=== PATIENT | male | born 1935 | race Caucasian/White ===

== ENCOUNTER 2017-07-23 20:27 | Observation (INO) | payer OTHER ==
[~2017-07-23] VITALS: Ht 177.8 cm; Wt 85.5 kg
[2017-07-23 21:17] LABS: BASOPHIL % 0.4 % (0-2); PLATELET COUNT 159 x10^3mcL (130-400); RED CELL DISTRIBUTION WIDTH 13.4 % (11.5-14.5)
[2017-07-23 21:24] LABS: CALCIUM 8.7 mg/dL (8.5-10.1); CARBON DIOXIDE 35.9 mmol/L (21-32); CHLORIDE SERUM 106 mmol/L (98-107); CREATININE SERUM 0.9 mg/dL (0.7-1.3); GLUCOSE SERUM 132 mg/dL (74-106); POTASSIUM SERUM 3.9 mmol/L (3.5-5.1); SODIUM SERUM 142 mmol/L (136-145)
[2017-07-23 21:28] LABS: ALBUMIN 3.6 g/dL (3.4-5.0); ALKALINE PHOSPHATASE 94 U/L (46-116); ALT/SGPT 35 U/L (16-63); AST/SGOT 16 U/L (15-37); BILIRUBIN TOTAL 0.5 mg/dL (0.20-1.00); TOTAL PROTEIN, SERUM 6.5 g/dL (6.4-8.2)
[2017-07-23] MEDS ORDERED: FINASTERIDE5 M1 PO (21:50)
[2017-07-23] MEDS ORDERED: FLO4 PO (21:51)
[2017-07-23] MEDS ORDERED: ASMANEX HF200 MCG/Ac IH (21:52)
[2017-07-23] MEDS ORDERED: VAS1025 PO (21:54)
[2017-07-23] MEDS ORDERED: ATROVENT H0.017 MG/1 INH (21:54)
[2017-07-23] MEDS ORDERED: ASPIR 8181 MG PO (21:54)
[2017-07-23] MEDS ORDERED: NOR5 PO (21:54)
[2017-07-23] MEDS ORDERED: XOP0.63 (21:55)
[2017-07-23] MEDS ORDERED: GOOD SENSE OMEP20 MG PO (21:56)
[2017-07-23] MEDS ORDERED: LIPITOR40 MG PO (21:56)
[2017-07-23 23:16] LABS: MAGNESIUM 2.2 mg/dL (1.8-2.4)
[2017-07-23 23:22] LABS: CHOLESTEROL/HDL RATIO 2.5
[2017-07-23 23:25] VITALS: BP 144/78
[2017-07-23 23:34] LABS: microscopic required? YES; urine erythrocyte NEGATIVE (NEGATIVE)
[2017-07-23 23:52] LABS: AMPHETAMINE QUAL UR NONE DETECTED (NEG <=1000)
[2017-07-24 06:01] VITALS: BP 117/54
[2017-07-24 09:13] VITALS: BP 117/62
[2017-07-24 12:50] VITALS: BP 112/56
[2017-07-24 18:21] VITALS: BP 104/55
[2017-07-24 21:16] VITALS: BP 104/54
[2017-07-24 22:56] LABS: BASOPHIL % 0.5 % (0-2); PLATELET COUNT 153 x10^3mcL (130-400); RED CELL DISTRIBUTION WIDTH 13.2 % (11.5-14.5)
[2017-07-24 23:04] LABS: CALCIUM 8.4 mg/dL (8.5-10.1); CARBON DIOXIDE 32.7 mmol/L (21-32); CHLORIDE SERUM 109 mmol/L (98-107); CREATININE SERUM 0.8 mg/dL (0.7-1.3); GLUCOSE SERUM 102 mg/dL (74-106); POTASSIUM SERUM 4.1 mmol/L (3.5-5.1); SODIUM SERUM 142 mmol/L (136-145)
[2017-07-25 05:54] VITALS: BP 107/48
[2017-07-25 09:32] VITALS: BP 112/48
[2017-07-25 13:35] VITALS: BP 102/56
[2017-07-25 18:34] VITALS: BP 105/54
[2017-07-25 21:17] VITALS: BP 109/59
[2017-07-26 05:57] VITALS: BP 115/63
[2017-07-26 06:55] VITALS: Ht 177.8 cm; Wt 85.5 kg
[2017-07-26 12:40] VITALS: BP 107/54
[2017-07-26 14:25] VITALS: BP 107/54
[2017-07-26 17:20] VITALS: BP 107/54
[2017-07-26 17:54] VITALS: BP 109/57
== END 2017-07-26 19:44 | disposition other institution (70) | DRG 303 ==
LOC: ED 20:27 → DU 22:44
PROVIDERS: Emergency Medicine; Internal Medicine
DX: I25.10 Atherosclerotic heart disease of native coronary artery without angina pectoris (principal); J44.9 Chronic obstructive pulmonary disease, unspecified; E11.9 Type 2 diabetes mellitus without complications; I10 Essential (primary) hypertension; Z79.82 Long term (current) use of aspirin; Z68.29 Body mass index [BMI] 29.0-29.9, adult
CPT/HCPCS: 82962; 83880; A9500; G0378; J1956; J2785; J7040

== ENCOUNTER 2017-12-20 17:52 | Inpatient (IN) | payer OTHER ==
[~2017-12-20] VITALS: Ht 177.8 cm; Wt 89.8 kg
[~2017-12-20 17:52] MED LIST: ASMANEX HF200 MCG/Ac IH; ASPIR 8181 MG PO; ATROVENT H0.017 MG/1 INH; FINASTERIDE5 M1 PO; FLO4 PO; GOOD SENSE OMEP20 MG PO; LIPITOR40 MG PO; NOR5 PO; VAS1025 PO; XOP0.63
[2017-12-20 19:11] LABS: CALCIUM 8.4 mg/dL (8.5-10.1); CARBON DIOXIDE 21.7 mmol/L (21-32); CHLORIDE SERUM 103 mmol/L (98-107); CREATININE SERUM 2.1 mg/dL (0.7-1.3); GLUCOSE SERUM 86 mg/dL (74-106); POTASSIUM SERUM 3.6 mmol/L (3.5-5.1); SODIUM SERUM 139 mmol/L (136-145)
[2017-12-20 19:15] LABS: ALKALINE PHOSPHATASE 102 U/L (46-116); ALT/SGPT 948 U/L (16-63); AST/SGOT 718 U/L (15-37); BILIRUBIN TOTAL 2.3 mg/dL (0.20-1.00); LIPASE 105 IU/L (73-393)
[2017-12-20 19:18] LABS: TOTAL PROTEIN, SERUM 5.9 g/dL (6.4-8.2)
[2017-12-20 19:24] LABS: RED CELL DISTRIBUTION WIDTH 13.4 % (11.5-14.5)
[2017-12-20 19:27] LABS: PLATELET COUNT 109 x10^3mcL (130-400)
[2017-12-20 19:35] LABS: BAND NEUTROPHIL 5 % (0-10); BASOPHIL 0 % (0-2); MONOCYTE 2 % (0-7); SEGMENTED NEUTROPHILS 91 % (37-75)
[2017-12-20 19:36] LABS: rbc morphology (normal/abnorm) ABNORMAL (NORMAL)
[2017-12-20 21:07] LABS: UA SPECIFIC GRAVITY 1.025 (1.005-1.035); microscopic required? YES; urine erythrocyte 3+ (NEGATIVE)
[2017-12-20] MEDS ORDERED: AMLODIPINE-OLM1 EAC1 PO (21:41)
[2017-12-20] MEDS ORDERED: GOOD SENSE ASPI81 M3 PO (21:42)
[2017-12-20] MEDS ORDERED: ATORVASTATIN CA40 M1 PO (21:42)
[2017-12-20] MEDS ORDERED: CIPRO500 MG PO (21:50)
[2017-12-20] MEDS ORDERED: FINASTERIDE5 M1 PO (21:51)
[2017-12-20] MEDS ORDERED: CROMOLYN SODIUM10 ML OU (21:51)
[2017-12-20] MEDS ORDERED: OMEPRAZOLE20 M4 PO (21:53)
[2017-12-20] MEDS ORDERED: FLO4 PO (21:54)
[2017-12-20] MEDS ORDERED: ATROVENT H0.017 MG/1 IH (21:55)
[2017-12-20] MEDS ORDERED: ASMANEX TW0.22 MG/A1 IH (21:56)
[2017-12-20] MEDS ORDERED: XOPENEX HF0.045 MG/1 (21:57)
[2017-12-20] MEDS ORDERED: ARTIFICIAL TEA1 EAC1 OP (21:57)
[2017-12-20] MEDS ORDERED: NITROGLYCERIN0.4 MG SL (21:58)
[2017-12-20 23:12] VITALS: BP 148/44
[2017-12-21] VITALS (8 sets, daily range): BP systolic 81–107; BP diastolic 42–67
[2017-12-21 07:51] LABS: RED CELL DISTRIBUTION WIDTH 13.2 % (11.5-14.5)
[2017-12-21 07:58] LABS: PLATELET COUNT 89 x10^3mcL (130-400)
[2017-12-21 09:04] LABS: MONOCYTE 2 % (0-7); SEGMENTED NEUTROPHILS 67 % (37-75)
[2017-12-21 09:05] LABS: BAND NEUTROPHIL 29 % (0-10); BASOPHIL 0 % (0-2); CALCIUM 7.2 mg/dL (8.5-10.1); CARBON DIOXIDE 24.8 mmol/L (21-32); CHLORIDE SERUM 107 mmol/L (98-107); CREATININE SERUM 2.9 mg/dL (0.7-1.3); GLUCOSE SERUM 120 mg/dL (74-106); PLATELET MORPHOLOGY PLATELETS DECREASED; POTASSIUM SERUM 4.7 mmol/L (3.5-5.1); SODIUM SERUM 140 mmol/L (136-145); rbc morphology (normal/abnorm) NORMAL (NORMAL)
[2017-12-22 03:26] VITALS: BP 97/54
[2017-12-22 05:24] LABS: CALCIUM 6.9 mg/dL (8.5-10.1); CARBON DIOXIDE 21.1 mmol/L (21-32); CHLORIDE SERUM 109 mmol/L (98-107); CREATININE SERUM 2.5 mg/dL (0.7-1.3); GLUCOSE SERUM 167 mg/dL (74-106); POTASSIUM SERUM 3.2 mmol/L (3.5-5.1); SODIUM SERUM 140 mmol/L (136-145)
[2017-12-22 05:32] LABS: RED CELL DISTRIBUTION WIDTH 13.6 % (11.5-14.5)
[2017-12-22 05:51] LABS: BASOPHIL % 0 % (0-2); PLATELET COUNT 71 x10^3mcL (130-400)
[2017-12-22 07:28] VITALS: BP 111/67
[2017-12-22 11:11] VITALS: BP 116/70
[2017-12-22 15:19] VITALS: BP 122/73
[2017-12-22 20:44] VITALS: BP 108/75
[2017-12-23 05:27] VITALS: BP 110/75
[2017-12-23 07:03] LABS: RED CELL DISTRIBUTION WIDTH 13.6 % (11.5-14.5)
[2017-12-23 07:09] LABS: CALCIUM 7.3 mg/dL (8.5-10.1); CARBON DIOXIDE 21.1 mmol/L (21-32); CHLORIDE SERUM 112 mmol/L (98-107); CREATININE SERUM 1.8 mg/dL (0.7-1.3); GLUCOSE SERUM 133 mg/dL (74-106); POTASSIUM SERUM 3.7 mmol/L (3.5-5.1); SODIUM SERUM 142 mmol/L (136-145)
[2017-12-23 07:29] LABS: PLATELET COUNT 72 x10^3mcL (130-400)
[2017-12-23 09:21] VITALS: BP 124/63
[2017-12-23 11:13] LABS: MAGNESIUM 2.1 mg/dL (1.8-2.4)
[2017-12-23 11:15] VITALS: BP 107/53
[2017-12-23 11:21] LABS: BAND NEUTROPHIL 13 % (0-10); BASOPHIL 0 % (0-2); MONOCYTE 3 % (0-7); SEGMENTED NEUTROPHILS 82 % (37-75)
[2017-12-23 11:25] LABS: rbc morphology (normal/abnorm) ABNORMAL (NORMAL); schistocyte (helmet cell) 1+; tear drop cell (dacryocyte) 1+
[2017-12-23 11:26] LABS: PLATELET MORPHOLOGY PLATELETS DECREASED
[2017-12-23 17:30] VITALS: BP 105/71
[2017-12-23 20:36] VITALS: BP 111/55
[2017-12-24 05:17] VITALS: BP 110/56
[2017-12-24 06:44] LABS: CALCIUM 7.7 mg/dL (8.5-10.1); CHLORIDE SERUM 113 mmol/L (98-107); CREATININE SERUM 1.6 mg/dL (0.7-1.3); GLUCOSE SERUM 137 mg/dL (74-106); POTASSIUM SERUM 3.6 mmol/L (3.5-5.1); SODIUM SERUM 145 mmol/L (136-145)
[2017-12-24 07:06] LABS: PLATELET COUNT 72 x10^3mcL (130-400); RED CELL DISTRIBUTION WIDTH 13.6 % (11.5-14.5)
[2017-12-24 08:59] LABS: BAND NEUTROPHIL 4 % (0-10); BASOPHIL 0 % (0-2); MONOCYTE 4 % (0-7); SEGMENTED NEUTROPHILS 88 % (37-75)
[2017-12-24 09:00] LABS: PLATELET MORPHOLOGY PLATELETS DECREASED; rbc morphology (normal/abnorm) ABNORMAL (NORMAL)
[2017-12-24 09:06] VITALS: BP 109/63
[2017-12-24 12:52] VITALS: BP 114/50
[2017-12-24 14:36] VITALS: BP 116/63
[2017-12-24 17:31] VITALS: BP 107/65
[2017-12-24 20:34] VITALS: BP 126/68
[2017-12-25 05:21] VITALS: BP 125/75
[2017-12-25 06:51] LABS: RED CELL DISTRIBUTION WIDTH 14.1 % (11.5-14.5)
[2017-12-25 07:30] LABS: BASOPHIL % 0 % (0-2); PLATELET COUNT 92 x10^3mcL (130-400)
[2017-12-25 07:50] LABS: CALCIUM 8.1 mg/dL (8.5-10.1); CARBON DIOXIDE 18.3 mmol/L (21-32); CHLORIDE SERUM 113 mmol/L (98-107); CREATININE SERUM 1.6 mg/dL (0.7-1.3); GLUCOSE SERUM 123 mg/dL (74-106); POTASSIUM SERUM 3.8 mmol/L (3.5-5.1); SODIUM SERUM 146 mmol/L (136-145)
[2017-12-25 09:01] VITALS: BP 111/63
[2017-12-25 13:04] VITALS: BP 126/89
[2017-12-25 16:50] VITALS: BP 107/60
[2017-12-25 21:03] VITALS: BP 124/68
[2017-12-26 05:59] VITALS: BP 130/70
[2017-12-26 06:20] LABS: BASOPHIL % 0.2 % (0-2); RED CELL DISTRIBUTION WIDTH 13.9 % (11.5-14.5)
[2017-12-26 06:33] LABS: CALCIUM 7.7 mg/dL (8.5-10.1); CARBON DIOXIDE 22.1 mmol/L (21-32); CHLORIDE SERUM 112 mmol/L (98-107); CREATININE SERUM 1.3 mg/dL (0.7-1.3); GLUCOSE SERUM 99 mg/dL (74-106); POTASSIUM SERUM 3.5 mmol/L (3.5-5.1); SODIUM SERUM 142 mmol/L (136-145)
[2017-12-26 07:11] LABS: PLATELET COUNT 100 x10^3mcL (130-400)
[2017-12-26 09:41] VITALS: BP 125/63
[2017-12-26 12:02] VITALS: BP 129/67
[2017-12-26 16:35] VITALS: BP 132/74
[2017-12-26 20:53] VITALS: BP 137/70
[2017-12-27 03:51] VITALS: Ht 177.8 cm; Wt 89.8 kg
[2017-12-27 05:45] VITALS: BP 129/72
[2017-12-27 06:44] LABS: BASOPHIL % 0.3 % (0-2); RED CELL DISTRIBUTION WIDTH 12.6 % (11.5-14.5)
[2017-12-27 07:06] LABS: CALCIUM 7.8 mg/dL (8.5-10.1); CARBON DIOXIDE 23.6 mmol/L (21-32); CHLORIDE SERUM 110 mmol/L (98-107); CREATININE SERUM 1.1 mg/dL (0.7-1.3); GLUCOSE SERUM 87 mg/dL (74-106); PLATELET COUNT 114 x10^3mcL (130-400); POTASSIUM SERUM 3.6 mmol/L (3.5-5.1); SODIUM SERUM 141 mmol/L (136-145)
[2017-12-27 09:33] VITALS: BP 135/69
[2017-12-27 13:19] VITALS: BP 129/68
[2017-12-27 17:18] VITALS: BP 128/68
[2017-12-27 20:42] VITALS: BP 140/72
[2017-12-28 06:26] VITALS: BP 145/80
[2017-12-28 07:09] LABS: PLATELET COUNT 144 x10^3mcL (130-400); RED CELL DISTRIBUTION WIDTH 13.6 % (11.5-14.5)
[2017-12-28 07:16] LABS: BASOPHIL % 0 % (0-2)
[2017-12-28 07:21] LABS: CALCIUM 7.8 mg/dL (8.5-10.1); CARBON DIOXIDE 26.2 mmol/L (21-32); CHLORIDE SERUM 109 mmol/L (98-107); GLUCOSE SERUM 95 mg/dL (74-106); POTASSIUM SERUM 3.6 mmol/L (3.5-5.1); SODIUM SERUM 141 mmol/L (136-145)
[2017-12-28 09:08] VITALS: BP 140/64
[2017-12-28 13:23] VITALS: BP 129/67
[2017-12-28 16:47] VITALS: BP 133/67
[2017-12-28 21:04] VITALS: BP 135/67
[2017-12-29 05:59] VITALS: BP 143/74
[2017-12-29 06:56] LABS: BASOPHIL % 0.2 % (0-2); PLATELET COUNT 169 x10^3mcL (130-400); RED CELL DISTRIBUTION WIDTH 13.2 % (11.5-14.5)
[2017-12-29 07:01] LABS: CALCIUM 7.4 mg/dL (8.5-10.1); CARBON DIOXIDE 26.7 mmol/L (21-32); CREATININE SERUM 1.1 mg/dL (0.7-1.3); GLUCOSE SERUM 92 mg/dL (74-106)
[2017-12-29 07:34] LABS: CHLORIDE SERUM 107 mmol/L (98-107); POTASSIUM SERUM 3.4 mmol/L (3.5-5.1); SODIUM SERUM 141 mmol/L (136-145)
[2017-12-29 09:20] VITALS: BP 149/66
[2017-12-29 09:49] VITALS: BP 143/74
== END 2017-12-29 13:10 | disposition other institution (70) | DRG 871 ==
LOC: ED 17:52 → DU 20:58 → IC 20:58 → DU 12-22 16:22
PROVIDERS: Emergency Medicine; Internal Medicine; Internal Medicine Cardiovascular Disease
DX: A41.9 Sepsis, unspecified organism (principal); K72.00 Acute and subacute hepatic failure without coma; R65.21 Severe sepsis with septic shock; N12 Tubulo-interstitial nephritis, not specified as acute or chronic; N13.8 Other obstructive and reflux uropathy; N17.9 Acute kidney failure, unspecified; J44.1 Chronic obstructive pulmonary disease with (acute) exacerbation; I48.2 Chronic atrial fibrillation; I25.10 Atherosclerotic heart disease of native coronary artery without angina pectoris; N48.6 Induration penis plastica; N40.1 Benign prostatic hyperplasia with lower urinary tract symptoms; Z79.82 Long term (current) use of aspirin; Z79.899 Other long term (current) drug therapy; Z68.31 Body mass index [BMI] 31.0-31.9, adult; K21.9 Gastro-esophageal reflux disease without esophagitis; E78.5 Hyperlipidemia, unspecified; D69.6 Thrombocytopenia, unspecified; N20.0 Calculus of kidney; Z87.891 Personal history of nicotine dependence; B96.20 Unspecified Escherichia coli [E. coli] as the cause of diseases classified elsewhere; B96.1 Klebsiella pneumoniae [K. pneumoniae] as the cause of diseases classified elsewhere; I13.10 Hypertensive heart and chronic kidney disease without heart failure, with stage 1 through stage 4 chronic kidney disease, or unspecified chronic kidney disease; N18.3 Chronic kidney disease, stage 3 (moderate); M79.89 Other specified soft tissue disorders
CPT/HCPCS: 78226; 94150; 97530-GP; A9537; J1720; J1885; J1940; J1956; J2185; J2270; J2543; J3370; J3490; J7030; J7620; J7626; Q0092

== ENCOUNTER 2019-11-14 15:57 | Inpatient (IN) | payer OTHER, SELFPAY ==
[~2019-11-14] VITALS: Ht 177.8 cm; Wt 81.0 kg
[~2019-11-14 15:57] MED LIST changes: +AMLODIPINE-OLM1 EAC1 PO; +ARTIFICIAL TEA1 EAC1 OP; +ASMANEX TW0.22 MG/A1 IH; +ATORVASTATIN CA40 M1 PO; +ATROVENT H0.017 MG/1 IH; +CIPRO500 MG PO; +CROMOLYN SODIUM10 ML OU; +GOOD SENSE ASPI81 M3 PO; +NITROGLYCERIN0.4 MG SL; +OMEPRAZOLE20 M4 PO; +XOPENEX HF0.045 MG/1
[2019-11-14 16:50] VITALS: Ht 177.8 cm; Wt 81.0 kg
[2019-11-14 17:08] LABS: RED CELL DISTRIBUTION WIDTH 12.9 % (11.5-14.5)
[2019-11-14 17:15] LABS: CALCIUM 8.2 mg/dL (8.5-10.1); CARBON DIOXIDE 24.5 mmol/L (21-32); CHLORIDE SERUM 104 mmol/L (98-107); CREATININE SERUM 1.5 mg/dL (0.7-1.3); GLUCOSE SERUM 151 mg/dL (74-106); POTASSIUM SERUM 3.6 mmol/L (3.5-5.1); SODIUM SERUM 137 mmol/L (136-145)
[2019-11-14 17:19] LABS: PLATELET COUNT 109 x10^3mcL (130-400)
[2019-11-14 17:29] LABS: ALBUMIN 2.7 g/dL (3.4-5.0); ALKALINE PHOSPHATASE 175 U/L (46-116); ALT/SGPT 61 U/L (16-63); AMYLASE 42 U/L (25-115); AST/SGOT 90 U/L (15-37); BILIRUBIN TOTAL 1.5 mg/dL (0.20-1.00); LIPASE 94 IU/L (73-393); TOTAL PROTEIN, SERUM 5.9 g/dL (6.4-8.2)
[2019-11-14 18:09] LABS: microscopic required? YES; urine erythrocyte 3+ (NEGATIVE)
[2019-11-14] MEDS ORDERED: ELIQUIS2.5 MG PO (18:20)
[2019-11-14] MEDS ORDERED: FINASTERIDE1 MG PO (18:20)
[2019-11-14] MEDS ORDERED: DILTIAZEM HCL120 M2 PO (18:22)
[2019-11-14 18:23] LABS: BAND NEUTROPHIL 2 % (0-10); BASOPHIL 0 % (0-2); MONOCYTE 12 % (0-7); SEGMENTED NEUTROPHILS 55 % (37-75)
[2019-11-14] MEDS ORDERED: TAMSULOSIN HCL0.4 MG PO (18:23)
[2019-11-14 18:24] LABS: rbc morphology (normal/abnorm) ABNORMAL (NORMAL)
[2019-11-14] MEDS ORDERED: ACID REDUCER20 MG PO (18:25)
[2019-11-14] MEDS ORDERED: XOP0.63 NEB (18:25)
[2019-11-14 23:19] VITALS: BP 107/60
[2019-11-15 02:03] VITALS: BP 100/46
[2019-11-15 06:58] LABS: CARBON DIOXIDE 22.9 mmol/L (21-32); CHLORIDE SERUM 111 mmol/L (98-107); CREATININE SERUM 1.5 mg/dL (0.7-1.3); GLUCOSE SERUM 200 mg/dL (74-106); POTASSIUM SERUM 3.6 mmol/L (3.5-5.1); SODIUM SERUM 144 mmol/L (136-145)
[2019-11-15 08:00] VITALS: BP 122/61
[2019-11-15 08:03] LABS: RED CELL DISTRIBUTION WIDTH 13.2 % (11.5-14.5)
[2019-11-15 08:37] LABS: PLATELET COUNT 104 x10^3mcL (130-400)
[2019-11-15 12:00] VITALS: BP 121/57
[2019-11-15 12:57] LABS: BAND NEUTROPHIL 10 % (0-10); MONOCYTE 6 % (0-7); SEGMENTED NEUTROPHILS 74 % (37-75); rbc morphology (normal/abnorm) ABNORMAL (NORMAL)
[2019-11-15 16:00] VITALS: BP 117/56
[2019-11-15 20:10] VITALS: BP 140/68
[2019-11-15 23:29] VITALS: BP 111/59
[2019-11-16] VITALS (32 sets, daily range): BP systolic 100–148; BP diastolic 53–89
[2019-11-16 08:58] LABS: CALCIUM 8.2 mg/dL (8.5-10.1); CARBON DIOXIDE 21.8 mmol/L (21-32); CHLORIDE SERUM 108 mmol/L (98-107); CREATININE SERUM 1.1 mg/dL (0.7-1.3); GLUCOSE SERUM 199 mg/dL (74-106); POTASSIUM SERUM 3.4 mmol/L (3.5-5.1); SODIUM SERUM 140 mmol/L (136-145)
[2019-11-16 09:24] LABS: RED CELL DISTRIBUTION WIDTH 13.1 % (11.5-14.5)
[2019-11-16 09:33] LABS: PLATELET COUNT 100 x10^3mcL (130-400)
[2019-11-16 11:40] LABS: BAND NEUTROPHIL 10 % (0-10); MONOCYTE 4 % (0-7); SEGMENTED NEUTROPHILS 80 % (37-75); rbc morphology (normal/abnorm) NORMAL (NORMAL)
[2019-11-17] VITALS (12 sets, daily range): BP systolic 97–136; BP diastolic 49–673
[2019-11-17 05:44] LABS: CALCIUM 7.6 mg/dL (8.5-10.1); CARBON DIOXIDE 26.6 mmol/L (21-32); CHLORIDE SERUM 107 mmol/L (98-107); CREATININE SERUM 0.9 mg/dL (0.7-1.3); GLUCOSE SERUM 191 mg/dL (74-106); SODIUM SERUM 139 mmol/L (136-145)
[2019-11-17 05:47] LABS: RED CELL DISTRIBUTION WIDTH 13.4 % (11.5-14.5)
[2019-11-17 05:53] LABS: PLATELET COUNT 103 x10^3mcL (130-400)
[2019-11-17 06:04] LABS: BAND NEUTROPHIL 8 % (0-10); MONOCYTE 2 % (0-7); SEGMENTED NEUTROPHILS 86 % (37-75); rbc morphology (normal/abnorm) ABNORMAL (NORMAL)
[2019-11-17 06:05] LABS: burr cell (echinocyte) 1+
[2019-11-18 05:52] VITALS: BP 126/75
[2019-11-18 06:47] LABS: RED CELL DISTRIBUTION WIDTH 14.1 % (11.5-14.5)
[2019-11-18 07:05] LABS: PLATELET COUNT 114 x10^3mcL (130-400)
[2019-11-18 08:50] VITALS: BP 142/73
[2019-11-18 08:53] LABS: CALCIUM 7.8 mg/dL (8.5-10.1); CARBON DIOXIDE 24.1 mmol/L (21-32); CHLORIDE SERUM 120 mmol/L (98-107); GLUCOSE SERUM 112 mg/dL (74-106); POTASSIUM SERUM 3.5 mmol/L (3.5-5.1); SODIUM SERUM 145 mmol/L (136-145)
[2019-11-18 11:19] LABS: BAND NEUTROPHIL 2 % (0-10); MONOCYTE 1 % (0-7); SEGMENTED NEUTROPHILS 90 % (37-75); rbc morphology (normal/abnorm) NORMAL (NORMAL)
[2019-11-18 12:30] VITALS: BP 105/75
[2019-11-18 17:10] VITALS: BP 121/66
[2019-11-18 17:39] VITALS: BP 105/75
[2019-11-18 21:15] VITALS: BP 131/69
[2019-11-19 05:44] VITALS: BP 116/72
[2019-11-19 08:10] LABS: CALCIUM 7.6 mg/dL (8.5-10.1); CARBON DIOXIDE 26.4 mmol/L (21-32); CHLORIDE SERUM 112 mmol/L (98-107); CREATININE SERUM 1.1 mg/dL (0.7-1.3); GLUCOSE SERUM 111 mg/dL (74-106); POTASSIUM SERUM 3.3 mmol/L (3.5-5.1); SODIUM SERUM 145 mmol/L (136-145)
[2019-11-19 08:23] VITALS: BP 135/70
[2019-11-19 08:30] LABS: PLATELET COUNT 132 x10^3mcL (130-400); RED CELL DISTRIBUTION WIDTH 13.8 % (11.5-14.5)
[2019-11-19 08:38] LABS: BASOPHIL % 0 % (0-2)
[2019-11-19 12:38] VITALS: BP 106/65
[2019-11-19 17:03] VITALS: BP 112/75
[2019-11-19 20:30] VITALS: BP 124/74
[2019-11-20 06:21] VITALS: BP 120/81
[2019-11-20 06:40] LABS: CALCIUM 7.7 mg/dL (8.5-10.1); CARBON DIOXIDE 26.3 mmol/L (21-32); CHLORIDE SERUM 111 mmol/L (98-107); CREATININE SERUM 0.9 mg/dL (0.7-1.3); GLUCOSE SERUM 100 mg/dL (74-106); POTASSIUM SERUM 3.7 mmol/L (3.5-5.1); SODIUM SERUM 143 mmol/L (136-145)
[2019-11-20 06:44] LABS: BASOPHIL % 0.1 % (0-2); PLATELET COUNT 168 x10^3mcL (130-400); RED CELL DISTRIBUTION WIDTH 13.8 % (11.5-14.5)
[2019-11-20 08:12] VITALS: BP 136/80
[2019-11-20 12:20] VITALS: BP 121/76
[2019-11-20 16:19] VITALS: BP 127/77
[2019-11-20 20:43] VITALS: BP 137/78
[2019-11-21] VITALS (14 sets, daily range): BP systolic 106–147; BP diastolic 65–82
[2019-11-21 08:06] LABS: PLATELET COUNT 179 x10^3mcL (130-400); RED CELL DISTRIBUTION WIDTH 13.6 % (11.5-14.5)
[2019-11-21 08:12] LABS: BASOPHIL % 0 % (0-2)
[2019-11-21 08:25] LABS: CALCIUM 7.5 mg/dL (8.5-10.1); CARBON DIOXIDE 27.7 mmol/L (21-32); CHLORIDE SERUM 108 mmol/L (98-107); CREATININE SERUM 0.7 mg/dL (0.7-1.3); GLUCOSE SERUM 117 mg/dL (74-106); POTASSIUM SERUM 3.4 mmol/L (3.5-5.1); SODIUM SERUM 142 mmol/L (136-145)
[2019-11-22 05:16] VITALS: BP 115/76
[2019-11-22 06:58] LABS: PLATELET COUNT 202 x10^3mcL (130-400); RED CELL DISTRIBUTION WIDTH 13.6 % (11.5-14.5)
[2019-11-22 07:21] LABS: BASOPHIL % 0 % (0-2)
[2019-11-22 08:38] VITALS: BP 113/62
[2019-11-22 08:40] LABS: CALCIUM 7.4 mg/dL (8.5-10.1); CARBON DIOXIDE 26.3 mmol/L (21-32); CHLORIDE SERUM 109 mmol/L (98-107); CREATININE SERUM 0.8 mg/dL (0.7-1.3); GLUCOSE SERUM 117 mg/dL (74-106); POTASSIUM SERUM 3.2 mmol/L (3.5-5.1); SODIUM SERUM 143 mmol/L (136-145)
[2019-11-22 12:28] VITALS: BP 116/68
[2019-11-22 13:47] VITALS: BP 116/68
== END 2019-11-22 17:10 | disposition other institution (70) | DRG 871 ==
LOC: ED 15:57 → DU 18:50 → ED 18:50 → IC 18:50 → DU 11-17 15:13
PROVIDERS: Emergency Medicine; Internal Medicine; ADMIT Internal Medicine; ATTEND Internal Medicine
PROC: B2111ZZ Fluoroscopy of Multiple Coronary Arteries using Low Osmolar Contrast (ICD-10-PCS; 2019-11-21)
PROC: B41F1ZZ Fluoroscopy of Right Lower Extremity Arteries using Low Osmolar Contrast (ICD-10-PCS; 2019-11-21)
PROC: B2151ZZ Fluoroscopy of Left Heart using Low Osmolar Contrast (ICD-10-PCS; 2019-11-21)
PROC: 4A023N7 Measurement of Cardiac Sampling and Pressure, Left Heart, Percutaneous Approach (ICD-10-PCS; principal; 2019-11-21 07:15)
PROC: 02HV33Z Insertion of Infusion Device into Superior Vena Cava, Percutaneous Approach (ICD-10-PCS; 2019-11-22)
PROC: B548ZZA Ultrasonography of Superior Vena Cava, Guidance (ICD-10-PCS; 2019-11-22)
DX: A41.9 Sepsis, unspecified organism (principal); R65.21 Severe sepsis with septic shock; I21.4 Non-ST elevation (NSTEMI) myocardial infarction; N12 Tubulo-interstitial nephritis, not specified as acute or chronic; E87.2 Acidosis; I42.9 Cardiomyopathy, unspecified; N39.0 Urinary tract infection, site not specified; I48.91 Unspecified atrial fibrillation; N13.9 Obstructive and reflux uropathy, unspecified; I25.10 Atherosclerotic heart disease of native coronary artery without angina pectoris; J44.9 Chronic obstructive pulmonary disease, unspecified; I10 Essential (primary) hypertension; K21.9 Gastro-esophageal reflux disease without esophagitis; N40.0 Benign prostatic hyperplasia without lower urinary tract symptoms; E78.5 Hyperlipidemia, unspecified; J45.909 Unspecified asthma, uncomplicated; D72.819 Decreased white blood cell count, unspecified; N41.9 Inflammatory disease of prostate, unspecified; D72.829 Elevated white blood cell count, unspecified; I48.0 Paroxysmal atrial fibrillation; G25.81 Restless legs syndrome; N32.0 Bladder-neck obstruction; B95.61 Methicillin susceptible Staphylococcus aureus infection as the cause of diseases classified elsewhere; Z20.828 Contact with and (suspected) exposure to other viral communicable diseases; Z79.899 Other long term (current) drug therapy; Z79.891 Long term (current) use of opiate analgesic; Z79.01 Long term (current) use of anticoagulants; Z79.2 Long term (current) use of antibiotics; Z87.442 Personal history of urinary calculi; Z79.82 Long term (current) use of aspirin
CPT/HCPCS: CLHCL; 76937; 87804; C1760; C1769; C1894; C9113; G0378; J0696; J1644; J1720; J2001; J2185; J2250; J2270; J2405; J2543; J3010; J3490; J7030; J7050; J7060; J7644; Q0092; Q9967; U0003-CS